=== PATIENT | female | born 1980 | race Caucasian/White ===

== ENCOUNTER 2017-01-19 02:34 | Emergency (ER) | payer BC, OTHER ==
[~2017-01-19] VITALS: Ht 167.6 cm; Wt 103.9 kg
[~2017-01-19 02:34] MED LIST: MELO15TA4 PO
[2017-01-19 02:37] VITALS: Ht 167.6 cm; Wt 103.9 kg
--- NOTE | 2017-01-19 03:53 | EMERGENCY ROOM VISIT NOTE ---
History First contact with patient: 02:42 Chief Complaint: ABDOMINAL PAIN Stated Complaint: STOMACH PAIN-HURTS TO MOVE,DIZZINESS History of Present Illness The patient is a 36 year old female who presents to the Emergency Room with complaints of pain in her upper abdomen which began yesterday afternoon. The patient states that she has severe pain in her upper abdomen. She has a history of hiatal hernia. She states she is supposed to take medication for this, but does not. She has a history of a hiatal hernia repair, cholecystectomy and tubal ligation. She denies any associated nausea/vomiting, appetite loss, urinary symptoms, changes in bowel movements, or abnormal vaginal discharge. She states her pain is worse with movement. Her primary care provider is located in the field. She rates her discomfort an 8/10. Review of Systems A complete 10 point review of systems was reviewed with the patient with pertinent positives and negatives as per history of present illness. All else were negative. Past Medical/Surgical History Medical Problems: (1) Umbilical hernia Surgical Problems: (1) History of cholecystectomy (2) History of tonsillectomy (3) History of tubal ligation (4) History of umbilical hernia repair Family History Cancer Diabetes mellitus Gallbladder disease Heart disease Hypertension Lung disease Seizures Social History Smoking Status: Current Every Day Smoker Marital Status: single Housing Status: lives with family Occupation Status: employed Current/Historical Medications No Active Prescriptions or Reported Meds Allergies Coded Allergies: No Known Allergies (Unverified , 01/19/17) Physical Exam Vital Signs Date Time Temp Pulse Resp B/P (MAP) Pulse Ox O2 Delivery O2 Flow Rate FiO2 01/19/17 07:35 69 16 97/59 99 01/19/17 05:55 70 18 115/77 98 Room Air 01/19/17 04:38 36.9 70 18 101/61 99 Room Air 01/19/17 02:37 36.8 95 18 116/76 100 Room Air Physical Exam VITALS: Vitals are noted on the nurse's note and reviewed by myself. Vital signs stable. GENERAL: This is a 36-year-old female, in no acute distress, nondiaphoretic, well-developed well-nourished. EYES: Pupils equal round and reactive to light and accommodation. MOUTH: Mucous membranes moist. NECK: Supple without nuchal rigidity. HEART: Regular rate and rhythm without murmurs gallops or rubs. LUNGS: Clear to auscultation bilaterally without wheezes, rales or rhonchi. ABDOMEN: Positive bowel sounds x 4. Soft, moderate epigastric tenderness. No guarding or rebound tenderness. NEURO: Patient was alert and oriented to person place and time. Medical Decision & Procedures ER Provider Diagnostic Interpretation: ABDOMINAL SERIES: No evidence of bowel obstruction. CT ABDOMEN & PELVIS: The appendix is visualized and is normal in caliber. There are enlarged ileocecal lymph nodes with regional fat stranding near the cecal base. There are multiple fluid-filled loops of small bowel. Findings may represent mesenteric adenitis or nonspecific enteritis. No bowel obstruction. Status post cholecystectomy. Liver, pancreas, spleen, adrenal glands, and kidneys are unremarkable. Mild free pelvic fluid, likely physiologic. Unremarkable uterus and urinary bladder. Radiologist: Oc Palmer M.D. Laboratory Results 01/19/17 03:45 Red Blood Count 4.76, Mean Corpuscular Volume 82.8, Mean Corpuscular Hemoglobin 26.5, Mean Corpuscular Hemoglobin Concent 32.0, Mean Platelet Volume 9.8, Neutrophils (%) (Auto) 69.4, Lymphocytes (%) (Auto) 18.2, Monocytes (%) (Auto) 10.4, Eosinophils (%) (Auto) 1.4, Basophils (%) (Auto) 0.3, Neutrophils # (Auto ) 8.22, Lymphocytes # (Auto) 2.15, Monocytes # (Auto) 1.23, Eosinophils # (Auto ) 0.16, Basophils # (Auto) 0.03 01/19/17 03:45 Test 01/19/17 03:15 01/19/17 03:45 Urine Color YELLOW Urine Appearance CLOUDY (CLEAR) Urine pH 5.0 (4.5-7.5) Urine Specific [place] 1.029 (1.000-1.030) Urine Protein NEG (NEG) Urine Glucose (UA) NEG (NEG) Urine Ketones NEG (NEG) Urine Occult Blood NEG (NEG) Urine Nitrite NEG (NEG) Urine Bilirubin NEG (NEG) Urine Urobilinogen NEG (NEG) Urine Leukocyte Esterase MODERATE (NEG) Urine WBC (Auto) 10-30 /hpf (0-5) Urine RBC (Auto) 0-4 /hpf (0-4) Urine Hyaline Casts (Auto) 1-5 /lpf (0-5) Urine Epithelial Cells (Auto) >30 /lpf (0-5) Urine Bacteria (Auto) 1+ (NEG) Urine Test NEG (NEG) White Blood Count 11.82 K/uL (4.8-10.8) Red Blood Count 4.76 M/uL (4.2-5.4) Hemoglobin 12.6 g/dL (12.0-16.0) Hematocrit 39.4 % (37-47) Mean Corpuscular Volume 82.8 fL (80-100) Mean Corpuscular Hemoglobin 26.5 pg (25-34) Mean Corpuscular Hemoglobin Concent 32.0 g/dl (32-36) Platelet Count 288 K/uL (130-400) Mean Platelet Volume 9.8 fL (7.4-10.4) Neutrophils (%) (Auto) 69.4 % Lymphocytes (%) (Auto) 18.2 % Monocytes (%) (Auto) 10.4 % Eosinophils (%) (Auto) 1.4 % Basophils (%) (Auto) 0.3 % Neutrophils # (Auto) 8.22 K/uL (1.4-6.5) Lymphocytes # (Auto) 2.15 K/uL (1.2-3.4) Monocytes # (Auto) 1.23 K/uL (0.11-0.59) Eosinophils # (Auto) 0.16 K/uL (0-0.5) Basophils # (Auto) 0.03 K/uL (0-0.2) RDW Standard Deviation 45.1 fL (36.4-46.3) RDW Coefficient of Variation 14.9 % (11.5-14.5) Immature Granulocyte % (Auto) 0.3 % Immature Granulocyte # (Auto) 0.03 K/uL (0.00-0.02) Anion Gap 6.0 mmol/L (3-11) Est Creatinine Clear Calc Drug Dose 117.7 ml/min Estimated GFR () 108.2 Estimated GFR (Non- 93.4 BUN/Creatinine Ratio 16.7 (10-20) Calcium Level 8.9 mg/dl (8.5-10.1) Total Bilirubin 0.6 mg/dl (0.2-1) Direct Bilirubin 0.2 mg/dl (0-0.2) Aspartate Amino Transf (AST/SGOT) 11 U/L (15-37) Alanine Aminotransferase (ALT/SGPT) 21 U/L (12-78) Alkaline Phosphatase 88 U/L (45-117) Total Protein 8.0 gm/dl (6.4-8.2) Albumin 3.7 gm/dl (3.4-5.0) Lipase 136 U/L (73-393) Date/Time Source Procedure Growth Status 01/19/17 03:15 Urine , Clean Catch Urine Culture - Final THREE TYPES OF ORGANISMS PRESENT, ALL... Complete ED Course The patient was evaluated as above. Labs were drawn and IV access was obtained. She declined analgesics. Abdominal series was performed and read by radiology as above. Given the patient's leukocytosis, a CT of the abdomen and pelvis was ordered. Patient was reevaluated and findings were discussed. Conservative measures were discussed with the patient. She is ready for discharge. Discharge instructions were reviewed with the patient. The patient verbalized understanding of my assessment and treatment plan and was discharged home in good condition. Medical Decision Differential diagnosis includes appendicitis, cholecystitis, bowel obstruction, colitis, gastroenteritis, ovarian cyst, ovarian torsion, UTI, among others. The patient is a 36-year-old female who presents today complaining of abdominal discomfort. Labs revealed mild leukocytosis. Labs were otherwise unremarkable. Urinalysis was not suggestive of infection. Urine was negative. CT of the abdomen and pelvis was performed given the patient's abdominal pain and leukocytosis and showed findings consistent with mesenteric adenitis or enteritis. Conservative measures were discussed with the patient. She did not have a surgical abdomen on exam. She will follow-up with her primary care provider as needed. Based on the patient's presentation and work up, I feel the patient is stable for outpatient treatment. The patient was educated to return to the emergency department for any worsening of their current condition or new/concerning symptoms. She will follow up with her PCP. Medication reconciliation: I attest that I have personally reviewed the patient 's current medication list. Blood pressure screening: Patient was found to have normal blood pressure on screening and does not require follow-up. Impression Primary Impression: Mesenteric adenitis Departure Information Dispostion Home / Self-Care Condition GOOD Prescriptions No Active Prescriptions or Reported Meds Referrals Hieu Ribeiro D.O. (PCP) Patient Instructions My [facility] Additional Instructions For pain control, you can use the following [id number] medicines (if >12 yo): - Regular strength (325mg/tab) Tylenol (acetaminophen) 2 tabs every 4-6 hours as needed. Do not exceed 12 tablets in a 24 hour period. Avoid taking more than 4 grams (4000 mg) of Tylenol per day. This includes any other sources of acetaminophen you may take on a regular basis. - Regular strength (200 mg/tab) Advil (ibuprofen) 1-2 tabs every 4-6 hours as needed. Do not exceed a dose of 3200 mg per day. Keep a clear liquid diet for the next 48 hours or until you are feeling better. Follow-up with her primary care provider this week as needed. Return to the emergency department with any worsening or new/concerning symptoms.
[2017-01-19 04:13] LABS: BASO % 0.3 %; BASO ABS # 0.03 K/uL (0-0.2); COMPLETE YES; EOS % 1.4 %; HEMATOCRIT 39.4 % (37-47); IG% 0.3 %; LYMPH % 18.2 %; LYMPH ABS # 2.15 K/uL (1.2-3.4); MEAN CELL VOLUME 82.8 fL (80-100); MEAN CORPUSCULAR HEMOGLOBIN 26.5 pg (25-34); MEAN PLATELET VOLUME 9.8 fL (7.4-10.4); MONO % 10.4 %; NEUT % 69.4 %; PLATELET COUNT 288 K/uL (130-400); RED BLOOD COUNT 4.76 M/uL (4.2-5.4); WHITE BLOOD COUNT 11.82 K/uL (4.8-10.8)
[2017-01-19 04:19] LABS: URINE APPEARANCE CLOUDY (CLEAR); URINE BILIRUBIN NEG (NEG); URINE COLOR YELLOW; URINE EPITHELIAL CELL AUTO >30 /lpf (0-5); URINE NITRITE NEG (NEG); URINE SPECIFIC GRAVITY 1.029 (1.000-1.030); UROBILINOGEN NEG (NEG); ZZUR CULT IF INDIC CLEAN CATCH YES
[2017-01-19 04:26] LABS: MANUAL MICROSCOPIC REQUIRED? NO; REVIEW REQ? NO
[2017-01-19 04:30] LABS: BUN/CREATININE RATIO 16.7 (10-20); CALCIUM 8.9 mg/dl (8.5-10.1); CREATININE 0.82 mg/dl (0.60-1.20); POTASSIUM 3.6 mmol/L (3.5-5.1)
[2017-01-19 04:38] VITALS: TEMP 36.9
[2017-01-19] MEDS ORDERED: OPTIRAY 320 IV PRN (04:45)
--- NOTE | 2017-01-19 07:25 | DIAGNOSTIC IMAGING REPORT ---
CHEST AND ABDOMEN 2 VIEWS HISTORY: epigastric abdominal pain COMPARISON: None. FINDINGS: The lungs are clear. The cardiomediastinal silhouette is within normal limits. There is no pneumoperitoneum or pneumatosis. The bowel gas pattern is unremarkable. No evidence for bowel obstruction. A few pelvic phleboliths. No renal stones. Prior cholecystectomy. IMPRESSION: No acute cardiopulmonary process. No evidence for bowel obstruction. Electronically signed by: Twan Conti M.D. 01/19/2017 7:24 AM Dictated Date/Time: 01/19/2017 7:22 AM
--- NOTE | 2017-01-19 07:32 | DIAGNOSTIC IMAGING REPORT ---
CT ABD/PELVIS IV CONTRAST ONLY CLINICAL HISTORY: Epigastric pain. Leukocytosis. Hiatal hernia. COMPARISON STUDY: None. TECHNIQUE: Following the IV administration of 118 mL of Optiray-320, CT scan of the abdomen and pelvis was performed from the lung bases to the proximal femurs. Images are reviewed in the axial, sagittal, and coronal planes. IV contrast was administered without complication. A dose lowering technique was utilized adhering to the principles of ALARA. CT DOSE: 1235.74 mGy.cm FINDINGS: Lower chest: There are mild bibasal atelectatic changes. There is a small hiatal hernia Liver: The contrast-enhanced liver is normal in size, contour, and attenuation. There is no intrahepatic biliary ductal dilatation. The hepatic veins and portal veins are patent. Gallbladder: Surgically absent Spleen: Normal in size and attenuation. Pancreas: Unremarkable. Adrenal glands: Unremarkable. Kidneys: There is symmetric renal cortical enhancement. The kidneys are normal in size without hydronephrosis. Bowel: There are no transition zones indicate bowel obstruction. The appendix is at the upper limits of normal in diameter measuring 6 mm. There is no evidence of acute diverticulitis. There are multiple fluid-filled small bowel loops. Peritoneum: There is trace free pelvic fluid. No free air is visualized. Vasculature: The abdominal aorta is normal in course and caliber. Adenopathy: There are enlarged ileocolic lymph nodes with infiltration of the surrounding fat. The findings are suggestive of a mesenteric adenitis. Pelvic viscera: The bladder, and pelvic viscera are unremarkable. Skeletal structures: No destructive osseous lesions are seen. IMPRESSION: 1. No evidence of bowel obstruction. No evidence of free air 2. Enlarged ileocolic lymph nodes with surrounding fat stranding. The findings likely represent a mesenteric adenitis. 3. Surgically absent gallbladder 4. The appendix is at the upper limits of normal in diameter. Electronically signed by: Sreekanth Degroot M.D. 01/19/2017 7:31 AM Dictated Date/Time: 01/19/2017 7:23 AM
[2017-01-19 07:35] VITALS: BP 97/59; PULSE 69; O2SAT 99
== END 2017-01-19 07:36 | disposition home or self-care (01) ==
LOC: C.EDB 02:35
DX: I88.0 Nonspecific mesenteric lymphadenitis (principal); F17.200 Nicotine dependence, unspecified, uncomplicated; Z90.49 Acquired absence of other specified parts of digestive tract; Z98.51 Tubal ligation status; Z98.890 Other specified postprocedural states; Z80.9 Family history of malignant neoplasm, unspecified; Z83.3 Family history of diabetes mellitus; Z83.79 Family history of other diseases of the digestive system; Z82.49 Family history of ischemic heart disease and other diseases of the circulatory system; Z82.0 Family history of epilepsy and other diseases of the nervous system